=== PATIENT | female | born 1995 | race Caucasian/White ===

== ENCOUNTER 2018-04-24 17:40 | Emergency (ER) | payer OTHER ==
[2018-04-24] MEDS ORDERED: Ibuprofen 800 MG TAB ONE (18:17)
== END 2018-04-24 19:09 | disposition home or self-care (01) ==
LOC: BURERS 17:40
DX: J06.9 Acute upper respiratory infection, unspecified (principal)
CPT/HCPCS: 87804; 99283

== ENCOUNTER 2021-01-15 19:31 | Emergency (ER) | payer OTHER ==
[2021-01-15 20:14] LABS: Bilirubin Negative (Negative); Blood, Urine Negative (Negative); Clarity Clear (Clear); Glucose, Urine (Dipstick) Negative (Negative); Ketone, Urine Negative (Negative); Leukocyte Negative (Negative); Nitrite Negative (Negative); Protein, Urine (Dipstick) Negative (Neg-Trace); Urobilinogen 0.2 mg/dL (Less than 2)
[2021-01-16 13:58] LABS: SARS-CoV-2 PCR by NAA Not Detected (NotDetected)
== END 2021-01-15 20:43 | disposition home or self-care (01) ==
LOC: BURERS 19:31
DX: O98.513 Other viral diseases complicating pregnancy, third trimester (principal); O99.891 Other specified diseases and conditions complicating pregnancy; R11.0 Nausea; Z20.822 Contact with and (suspected) exposure to COVID-19
CPT/HCPCS: 81003; 87081; 87430; 99284; U0003; U0005

== ENCOUNTER 2021-04-18 09:59 | Emergency (ER) | payer OTHER ==
[2021-04-18] MEDS ORDERED: Ibuprofen 800 MG TAB ONE (10:19)
[2021-04-19 15:15] LABS: SARS-CoV-2 PCR by NAA DETECTED (NotDetected)
== END 2021-04-18 11:01 | disposition home or self-care (01) ==
LOC: BURERS 09:59
DX: U07.1 COVID-19 (principal)
CPT/HCPCS: 87804; 99283; U0003; U0005